=== PATIENT | female | born 1960 | race Caucasian/White ===

== ENCOUNTER 2016-04-04 14:11 | Inpatient (IN) | payer MEDICAID ==
[~2016-04-04] VITALS: Ht 167.6 cm; Wt 91.0 kg
[2016-04-04] MEDS ORDERED: METHYLPRED SOD SUCC 125 MG/2 ML VIAL ONE (17:43)
[2016-04-04] MEDS ORDERED: SODIUM CHLORIDE 0.9% 1,000 ML ONE (17:43)
[2016-04-04] MEDS ORDERED: DUONEB INH ONE ×3 (17:44→21:41)
[2016-04-04] MEDS ORDERED: KETOROLAC 30 MG/ML VIAL ONE (18:07)
[2016-04-04] MEDS ORDERED: OSELTAMIVIR 75 MG CAP PO ONE (19:40)
[2016-04-04] MEDS ORDERED: OSELTAMIVIR 75 MG CAP ONE (19:59)
[2016-04-04] MEDS ORDERED: ACETAMINOPHEN 325 MG TAB ONE (21:08)
[2016-04-04] MEDS: OSELTAMIVIR 75 MG CAP PO SCH (21:48)
[2016-04-04] MEDS ORDERED: ONDANSETRON 4 MG VIAL IV PUSH PRN (21:50)
[2016-04-04] MEDS ORDERED: ALPRAZOLAM 0.25 MG TAB PO PRN (21:50)
[2016-04-04] MEDS ORDERED: ACETAMINOPHEN 325 MG TAB PO PRN (21:50)
[2016-04-04 21:54] VITALS: RESP 20
[2016-04-04 23:07] VITALS: BP_SYST 126; BP_SYST 130; RESP 22; TEMP 98.9
[2016-04-04 23:09] VITALS: Ht 167.6 cm; Wt 91.0 kg
[2016-04-05] MEDS: DUONEB INH PRN ×2 (04:27→21:16)
[2016-04-05 04:47] VITALS: BP_SYST 122; RESP 22; TEMP 98.7
[2016-04-05 07:54] VITALS: BP_SYST 134; RESP 18; TEMP 97.8
[2016-04-05] MEDS: OSELTAMIVIR 75 MG CAP PO SCH ×2 (08:09→20:01)
[2016-04-05] MEDS ORDERED: LACTULOSE SOLN 20GM/30ML UDC PO PRN (09:55)
[2016-04-05] MEDS ORDERED: GLUCAGON 1 MG VIAL IM PRN (10:00)
[2016-04-05] MEDS ORDERED: DEXTROSE 50% SYRINGE 50 ML IV PRN (10:00)
[2016-04-05 10:24] VITALS: BP_SYST 156; RESP 16; TEMP 97.7
[2016-04-05] MEDS: PREDNISONE 20 MG TAB PO SCH (12:41)
[2016-04-05] MEDS: DOCUSATE SOD 100 MG CAP PO SCH ×2 (12:41→20:00)
[2016-04-05 15:08] VITALS: BP_SYST 118; RESP 18; TEMP 98.8
[2016-04-05] MEDS: LORATADINE 10 MG TAB PO SCH (15:32)
[2016-04-05] MEDS: ASPIRIN EC 325 MG TAB PO SCH (15:32)
[2016-04-05] MEDS: ISOSORBIDE MONO 60 MG TAB PO SCH (15:32)
[2016-04-05] MEDS: GABAPENTIN 400 MG CAP PO SCH ×2 (15:33→20:01)
[2016-04-05] MEDS: METFORMIN XR 500 MG TAB PO SCH (16:45)
[2016-04-05] MEDS: Furosemide 40 MG TAB PO SCH (16:57)
[2016-04-05 19:50] VITALS: BP_SYST 140; RESP 20; TEMP 97.7
[2016-04-05] MEDS: Atorvastatin 20 MG TAB PO SCH (20:00)
[2016-04-05] MEDS: METOPROLOL TART 100 MG TAB PO SCH (20:01)
[2016-04-05] MEDS: LEVEMIR INSULIN SUBQ SCH (20:16)
[2016-04-05 22:52] VITALS: BP_SYST 130; RESP 18; TEMP 98.2
[2016-04-06] MEDS: DUONEB INH PRN ×5 (00:55→22:39)
[2016-04-06 03:35] VITALS: BP_SYST 136; RESP 18; TEMP 98
[2016-04-06 07:39] VITALS: BP_SYST 120; RESP 20; TEMP 97
[2016-04-06] MEDS: METFORMIN XR 500 MG TAB PO SCH ×2 (09:10→17:16)
[2016-04-06] MEDS: ISOSORBIDE MONO 60 MG TAB PO SCH (09:11)
[2016-04-06] MEDS: Furosemide 40 MG TAB PO SCH ×2 (09:11→17:15)
[2016-04-06] MEDS: OSELTAMIVIR 75 MG CAP PO SCH ×2 (09:11→20:46)
[2016-04-06] MEDS: PREDNISONE 20 MG TAB PO SCH (09:11)
[2016-04-06] MEDS: LORATADINE 10 MG TAB PO SCH (09:11)
[2016-04-06] MEDS: DOCUSATE SOD 100 MG CAP PO SCH ×2 (09:11→20:46)
[2016-04-06] MEDS: GABAPENTIN 400 MG CAP PO SCH ×3 (09:11→20:46)
[2016-04-06] MEDS: ASPIRIN EC 325 MG TAB PO SCH (09:11)
[2016-04-06] MEDS ORDERED: MISSING DOSE XX ONE (10:45)
[2016-04-06 12:07] VITALS: BP_SYST 142; RESP 18; TEMP 97.3
[2016-04-06] MEDS: METOPROLOL TART 50 MG TAB PO SCH (12:12)
[2016-04-06 14:37] VITALS: BP_SYST 140; RESP 18; TEMP 98
[2016-04-06 20:11] VITALS: BP_SYST 178; RESP 18; TEMP 98.1
[2016-04-06] MEDS: METOPROLOL TART 100 MG TAB PO SCH (20:46)
[2016-04-06] MEDS: Atorvastatin 20 MG TAB PO SCH (20:46)
[2016-04-06] MEDS: LEVEMIR INSULIN SUBQ SCH (20:47)
[2016-04-06 23:21] VITALS: BP_SYST 178; RESP 20; TEMP 98.1
[2016-04-07] MEDS: DUONEB INH PRN ×3 (02:59→10:47)
[2016-04-07 03:56] VITALS: BP_SYST 148; RESP 20; TEMP 97.4
[2016-04-07 07:25] VITALS: BP_SYST 128; RESP 18; TEMP 97.6
[2016-04-07] MEDS ORDERED: LISINOPRIL 10 MG TAB PO SCH (09:00)
[2016-04-07] MEDS: GABAPENTIN 400 MG CAP PO SCH (10:07)
[2016-04-07] MEDS: ASPIRIN EC 325 MG TAB PO SCH (10:07)
[2016-04-07] MEDS: METFORMIN XR 500 MG TAB PO SCH (10:07)
[2016-04-07] MEDS: ISOSORBIDE MONO 60 MG TAB PO SCH (10:07)
[2016-04-07] MEDS: LORATADINE 10 MG TAB PO SCH (10:07)
[2016-04-07] MEDS: METOPROLOL TART 50 MG TAB PO SCH (10:07)
[2016-04-07] MEDS: DOCUSATE SOD 100 MG CAP PO SCH (10:07)
[2016-04-07] MEDS: OSELTAMIVIR 75 MG CAP PO SCH (10:08)
[2016-04-07] MEDS: PREDNISONE 20 MG TAB PO SCH (10:08)
[2016-04-07] MEDS: Furosemide 40 MG TAB PO SCH (10:08)
[2016-04-07 11:00] VITALS: BP_SYST 128; RESP 16; TEMP 97.8
[2016-04-07 12:50] VITALS: BP_SYST 128; RESP 16; TEMP 97.8
== END 2016-04-07 14:31 | disposition home or self-care (01) | DRG 153 ==
LOC: ENRESERVDT → ENRESERVTM → ER 14:11 → EMR 21:14 → 4NT 22:37 → ENPENDDIS 04-05 10:28 → OBSVTOIN 04-05 10:28
PROVIDERS: ADMIT Internal Medicine Nephrology; ATTEND Internal Medicine Nephrology
DX: J11.1 Influenza due to unidentified influenza virus with other respiratory manifestations (principal); E11.51 Type 2 diabetes mellitus with diabetic peripheral angiopathy without gangrene; R09.02 Hypoxemia; I10 Essential (primary) hypertension; E78.5 Hyperlipidemia, unspecified; G43.909 Migraine, unspecified, not intractable, without status migrainosus; Z87.891 Personal history of nicotine dependence; Z79.84 Long term (current) use of oral hypoglycemic drugs; Z79.82 Long term (current) use of aspirin
CPT/HCPCS: 36415; 36600; 71020; 80053; 82803; 82947; 85025; 87804; 94640; 94799; 96361; 96374; 96375